=== PATIENT | female | born 1995 | race Caucasian/White ===

== ENCOUNTER 2022-09-18 12:49 | Emergency (ER) | payer BC, SELFPAY ==
[2022-09-18] VITALS (10 sets, daily range): BP systolic 123–146; BP diastolic 82–105; PULSE 55–72; RESP 16–18; TEMP 36.6; O2SAT 96–99; BMI 21.6
[2022-09-18 13:41] LABS: Basophils Absolute Auto 0.08 K/uL (0.00-0.30); Basophils Percent Auto 1.1 % (0.0-3.0); Eosinophils Absolute Auto 0.19 K/uL (0.00-0.50); Eosinophils Percent Auto 2.7 % (0.0-7.0); Hematocrit 39.5 % (33.0-51.0); Hemoglobin* 13.1 gm/dL (12.0-16.0); Immature Granulocytes Abs Auto 0.01 K/uL (0.00-0.30); Immature Granulocytes Pct Auto 0.1 %; Lymphocytes Percent Auto 19.3 % (20-44); Mean Corpuscular HGB Conc 33 gm/dL (32-36); Mean Corpuscular Hemoglobin 30 pg (26-34); Mean Corpuscular Volume 89 fL (80-100); Monocytes Percent Auto 8.1 % (0.0-11.0); Neutrophils Percent Auto 68.7 % (42.0-72.0); Platelet Count* 247 K/uL (140-440); RDW Coefficient of Variation % 13.3 % (11.5-15.5); Red Blood Count 4.43 m/uL (4.00-5.20); White Blood Count* 7.14 K/uL (4.50-11.00)
[2022-09-18 13:42] LABS: Appearance Urine Clear (Clear); Bilirubin Urine Negative (Negative); Blood Urine Trace-lysed (Negative); Color Urine Yellow (Yellow); Glucose Urine Negative (Negative); HCG Qualitative* Negative (Negative); Ketones Urine Negative (Negative); Leukocyte Esterase Urine 1+ (Negative); Nitrite Urine Negative (Negative); Protein Urine Negative (Negative); Urobilinogen Urine 0.2 (0.2-1.0)
[2022-09-18] MEDS: KETOROLAC 30 MG/ML inj IVP (13:45)
[2022-09-18] MEDS: 0.9 % SODIUM CHLORIDE 1000 ml 1,000 ML IV (13:45)
[2022-09-18] MEDS: MORPHINE 4 MG/ML INJ IVP ×2 (13:46→15:37)
[2022-09-18 13:53] LABS: RBC Urine 0-2 (0-2); Squamous Epithelial Cell Urine Few (None-Few); WBC Urine 0-2 (0-5)
[2022-09-18 13:53] LABS: Albumin* 4.7 g/dL (3.3-5.0); Chloride* 108 mmol/L (96-114); Sodium* 139 mmol/L (135-149)
[2022-09-18 13:55] LABS: Creatinine* 0.7 mg/dL (0.5-1.5); Est. Creatinine Clearance* 106.71; Estimated Glomerular Filt Rate 120 ml/min
[2022-09-18 13:56] LABS: Aspartate Amino Transferase* 23 U/L (12-35); Bilirubin Direct* 0.1 mg/dL (0.0-0.5); Bilirubin Total* 0.8 mg/dL (0.1-1.5); Carbon Dioxide* 24 mmol/L (20-32); Total Protein* 7.5 g/dL (6.0-8.3)
[2022-09-18 13:57] LABS: Alanine Aminotransferase* 16 U/L (4-35); Alkaline Phosphatase* 108 U/L (40-150); Blood Urea Nitrogen* 10 mg/dL (5-24); Calcium* 9.2 mg/dL (8.4-10.6); Glucose* 89 mg/dL (60-115)
[2022-09-18 14:00] LABS: Slide Review Reflex No
[2022-09-18 14:02] LABS: C Reactive Protein* < 0.5 mg/dL (0.5-1.0)
--- NOTE | 2022-09-18 14:14 | CRLHL7_ITS ---
For Patients: As a result of the Century Cures Act, medical imaging exams and procedure reports are released immediately into your electronic medical record. You may view this report before your referring provider. If you have questions, please contact your health care provider. INDICATION: Right lower quadrant pain for 1 day. TECHNIQUE: CT abdomen and pelvis without contrast. Coronal and sagittal reformats were generated. COMPARISON: None. FINDINGS: Lower chest: Unremarkable. Liver: Unremarkable. Gallbladder and bile ducts: Unremarkable. No stones or inflammation. No biliary dilation. Spleen: Unremarkable. Pancreas: Unremarkable. Adrenal glands: Unremarkable. No nodules. Kidneys and Ureters: No stones or hydronephrosis. Lymph Nodes and Retroperitoneum: Unremarkable. Vasculature: Unremarkable. GI tract: Unremarkable. Normal in caliber. Normal appendix. Peritoneum/Abdominal Wall: Unremarkable. No free air or free fluid. Pelvic Viscera: Unremarkable. Bladder: Unremarkable. Bones: Unremarkable for age. IMPRESSION: 1. No renal or ureteral calculi, or findings of obstructive uropathy. 2. No other significant CT abnormality within limitations of lack of contrast. Please note that all CT scans at this facility use dose modulation, iterative reconstruction, and/or weight-based dosing when appropriate to reduce radiation dose to as low as reasonably achievable. Dictated by Zacarias Bruner MD @ 09/18/2022 3:08:44 PM (Electronically Signed)
--- NOTE | 2022-09-18 15:22 | CRLHL7_ITS ---
For Patients: As a result of the Century Cures Act, medical imaging exams and procedure reports are released immediately into your electronic medical record. You may view this report before your referring provider. If you have questions, please contact your health care provider. INDICATION: Right lower quadrant/adnexal area pain. TECHNIQUE: Ultrasound pelvis transabdominal and transvaginal for better assessment or to better visualize the endometrium. Real-time sonographic images with spectral and color Doppler imaging of the ovaries were obtained. COMPARISON: CT of the abdomen and pelvis from 09/18/2022. FINDINGS: Uterus: 7.3 x 3.2 x 4.2 cm. Normal echotexture of the myometrium. No masses. Endometrium: Transvaginal imaging was performed to better evaluate the endometrium. Endometrial thickness measures 4 mm. No sign of endometrial mass or fluid. Ovaries: The right ovary measures 2.9 x 1.6 x 1.8 cm and left ovary measures 2.6 x 1.2 x 1.9 cm. No ovarian or adnexal masses. Normal arterial and venous blood flow in the right ovary. Blood flow cannot be confirmed in the left ovary. Cul-de-sac: No significant free fluid. Trace free fluid in the right adnexum is within the physiologic range. IMPRESSION: 1. The territory sales professional could not document blood flow to the left ovary. Left ovarian torsion cannot be excluded on this basis. 2. No other sonographic abnormality in the pelvis. Specifically, the right ovary demonstrates normal blood flow. Dictated by Zacarias Bruner MD @ 09/18/2022 5:16:46 PM (Electronically Signed)
--- NOTE | 2022-09-18 17:14 | ED_ITS ---
HPI - Abdominal Pain General Chief Complaint: Abdominal Pain Stated Complaint: Low R abdominal pain Time Seen by Provider: 09/18/22 12:55 History of Present Illness HPI narrative: 27-year-old young woman presenting to the emergency department with her significant other with complaint of right lower abdominal pain. Has been going on now for about 3 hours. Initially presented to the urgent care and then directed to the ER. Sudden onset. Sharp pain. Sometimes pulsatile but always present. Any movement hurts. Curling up into a ball seemed to help a little bit; she had describes a position. Initially denying urinary tract symptoms partly because had urinated today but if she recalls over the last 2-3 days has experienced some twinges of discomfort sounds like generally at the end of voiding. No unusual vaginal discharge described. No fever. No trauma noted. Would not describe herself as constipated. She notes having been diagnosed 1 point in the past with constipation and at that time she had some left abdominal and flank area tenderness. Is not nauseated but does not want to eat. Menses have been rather irregular but would expect her next period in about 10 days. 2 brothers and father with kidney stones. Later noted that did have some recent thin white vaginal discharge that she would note to be consistent with ovulation. Related Data Home Medications Medication Instructions Recorded Confirmed escitalopram oxalate 10 mg tablet mg 09/18/22 Allergies Allergy/AdvReac Type Severity Reaction Status Date / Time cefaclor [From Ceclor] Allergy Verified 09/18/22 12:59 Review of Systems Status of ROS Reports: 10 or more systems reviewed and unremarkable except as noted in History and below PFSH PFS Social History Smoking Status: Never smoker How often do you have a drink containing alcohol: 2-3 times a week AUDIT-C Alcohol total score: 3 Non-prescribed substance use: denies use Exam Narrative: Exam Narrative: Pleasant. Seated curled up a little bit appearing uncomfortable. Breathing easily. Oropharynx is moist. Cranial nerves 2-12 look to be intact. Lungs are clear. Cardiovascular with regular rate and rhythm. There is no flank pain. Abdomen is soft and significantly tender in the right lower quadrant. Primary area of pain appears to be medial to McBurney's and superior to the adnexal area. No swellings appreciated. No masses appreciated. Extremities are well perfused and without edema. Moving all extremities without difficulty. On initial exam is not appear to be left abdominal or pelvic tenderness. On repeat exam deeper palpation able to reproduce a small amount of discomfort in the left lower quadrant maybe more so the left adnexal area. Const: Vital Signs, click to edit/add: Vital Signs - 24 hr 09/18/22 12:56 09/18/22 14:00 09/18/22 13:50 Temperature 97.8 F Pulse Rate [Right Pulse Oximeter] 72 61 Respiratory Rate 18 16 Blood Pressure [Ri ght Upper Arm] 146/91 H 131/91 H Pulse Oximetry 99 97 97 Oxygen Delivery Me thod Room Air Room Air 09/18/22 14:30 09/18/22 15:00 09/18/22 15:30 Temperature Pulse Rate [Right Pulse Oximeter] 63 63 56 L Respiratory Rate 16 16 16 Blood Pressure [Ri ght Upper Arm] 137/105 H 142/82 H 123/90 H Pulse Oximetry 98 98 98 Oxygen Delivery Me thod 09/18/22 16:00 09/18/22 17:00 09/18/22 17:30 Temperature Pulse Rate [Right Pulse Oximeter] 61 62 55 L Respiratory Rate 16 16 16 Blood Pressure [Ri ght Upper Arm] 135/89 136/85 135/86 Pulse Oximetry 96 96 97 Oxygen Delivery Me thod 09/18/22 18:00 Temperature Pulse Rate [Right Pulse Oximeter] 57 L Respiratory Rate 16 Blood Pressure [Ri ght Upper Arm] 144/96 H Pulse Oximetry 98 Oxygen Delivery Me thod Documenting provider has reviewed patient's vital signs: yes Course Vital Signs Vital signs: Initial Vital Signs Temperature 97.8 F 09/18/22 12:56 Temperature Source Temporal Artery Scan 09/18/22 12:56 Pulse Rate 72 09/18/22 12:56 Respiratory Rate 18 09/18/22 12:56 Blood Pressure 146/91 H 09/18/22 12:56 Blood Pressure Mean 109 09/18/22 12:56 Blood Pressure Position Sitting 09/18/22 12:56 Pulse Oximetry 99 09/18/22 12:56 Oxygen Delivery Method 09/18/22 12:56 Vital Signs Temperature 97.8 F 09/18/22 12:56 Pulse Rate 72 09/18/22 12:56 Respiratory Rate 18 09/18/22 12:56 Blood Pressure 146/91 H 09/18/22 12:56 Pulse Oximetry 99 09/18/22 12:56 Oxygen Delivery Method 09/18/22 12:56 Temperature 97.8 F 09/18/22 12:56 Pulse Rate 57 L 09/18/22 18:00 Respiratory Rate 16 09/18/22 18:00 Blood Pressure 144/96 H 09/18/22 18:00 Pulse Oximetry 98 09/18/22 18:00 Oxygen Delivery Method 09/18/22 14:00 MDM - Abdominal Pain MDM Narrative Medical decision making narrative: Differential includes epiploic appendagitis, diverticulitis less likely, ureteral stone and spasm, urinary tract infection, ovarian issue, ectopic, appendicitis. Location of discomfort more consistent with appendicitis but story is not, location inconsistent with ovarian but possible, pain is more reproducible than I would typically expect with ureteral stone. Does appear to have significant pain. Given IV fluids morphine and ketorolac. With re-evaluation pain was returning and re-dosed with morphine. Pain ultimately was still mildly present again in the right low abdomen but overall improved. Strangely have time in this emergency department today and I think will let labs guide further imaging. White count was normal as was CRP. I would think more of an ovarian issue although pain again not in location I might expect. Urinary symptoms that she was describing at end of urination and urinalysis without evidence of infection however trace lysed blood and with 1+ leukocyte esterase decided to proceed with CT imaging evaluating for possible ureteral stone or recently passed. CT scan by my read did show some calcifications in the pelvis consistent with phleboliths, and what I think is a higher right ovary. -- radiology over-read noted no abnormalities. Visualized normal appendix. Discussing next steps as still without clear diagnosis, decided to proceed with pelvic ultrasound. I have discussed with the collection technician who noted some free fluid around the right ovary and that was not able to document blood flow to the left ovary. Abdominal gas did make exam more challenging. Exam did not appear to be particularly uncomfortable. Radiology over-read concurs with the collection technician report including physiologic fluid in the right adnexal area. I did discuss this case and findings with tipple supervisor on-call. Symptoms and imaging reviewed inconsistent otherwise with torsion or anoxic left ovary. Lab Data Attestation: I reviewed the patient's lab results. Labs: Lab Results 09/18/22 09/18/22 09/18/22 Range/Units 13:10 13:10 13:30 WBC 7.14 (4.50-11.00) K/uL RBC 4.43 (4.00-5.20) m/uL Hgb 13.1 (12.0-16.0) gm/dL Hct 39.5 (33.0-51.0) % MCV 89 (80-100) fL MCH 30 (26-34) pg MCHC 33 (32-36) gm/dL RDW Coeff of Juice 13.3 (11.5-15.5) % Plt Count 247 (140-440) K/uL Neut % (Auto) 68.7 (42.0-72.0) % Lymph % (Auto) 19.3 L (20-44) % [place] % (Auto) 8.1 (0.0-11.0) % Eos % (Auto) 2.7 (0.0-7.0) % Baso % (Auto) 1.1 (0.0-3.0) % Neut # (Auto) 4.90 (1.7-7.0) K/uL Lymph # (Auto) 1.40 (0.90-2.90) K/uL [place] # (Auto) 0.60 (0.00-0.90) K/UL Eos # (Auto) 0.19 (0.00-0.50) K/uL Baso # (Auto) 0.08 (0.00-0.30) K/uL Sodium (135-149) mmol/L Potassium (3.6-5.1) mmol/L Chloride (96-114) mmol/L Carbon Dioxide (20-32) mmol/L BUN (5-24) mg/dL Creatinine (0.5-1.5) mg/dL Estimated Creat Clear Estimated GFR ml/min Glucose (60-115) mg/dL Calcium (8.4-10.6) mg/dL Total Bilirubin (0.1-1.5) mg/dL Direct Bilirubin (0.0-0.5) mg/dL AST (12-35) U/L ALT (4-35) U/L Alkaline Phosphatase (40-150) U/L C-Reactive Protein (0.5-1.0) mg/dL Total Protein (6.0-8.3) g/dL Albumin (3.3-5.0) g/dL HCG, Qual Negative (Negative) Urine Color Yellow (Yellow) Urine Appearance Clear (Clear) Urine pH 6.0 (5.0-8.5) Ur Specific [place] 1.020 (1.000-1.030) Urine Protein Negative (Negative) Urine Glucose (UA) Negative (Negative) Urine Ketones Negative (Negative) Urine Blood Trace-lysed A (Negative) Urine Nitrite Negative (Negative) Urine Bilirubin Negative (Negative) Urine Urobilinogen 0.2 (0.2-1.0) Ur Leukocyte Esterase 1+ A (Negative) Urine RBC 0-2 (0-2) Urine WBC 0-2 (0-5) Ur Squamous Epith Cells Few (None-Few) Urine Bacteria None (None) 09/18/ Range/Units 13:30 WBC (4.50-11.00) K/uL RBC (4.00-5.20) m/uL Hgb (12.0-16.0) gm/dL Hct (33.0-51.0) % MCV (80-100) fL MCH (26-34) pg MCHC (32-36) gm/dL RDW Coeff of Juice (11.5-15.5) % Plt Count (140-440) K/uL Neut % (Auto) (42.0-72.0) % Lymph % (Auto) (20-44) % [place] % (Auto) (0.0-11.0) % Eos % (Auto) (0.0-7.0) % Baso % (Auto) (0.0-3.0) % Neut # (Auto) (1.7-7.0) K/uL Lymph # (Auto) (0.90-2.90) K/uL [place] # (Auto) (0.00-0.90) K/UL Eos # (Auto) (0.00-0.50) K/uL Baso # (Auto) (0.00-0.30) K/uL Sodium 139 (135-149) mmol/L Potassium 4.0 (3.6-5.1) mmol/L Chloride 108 (96-114) mmol/L Carbon Dioxide 24 (20-32) mmol/L BUN 10 (5-24) mg/dL Creatinine 0.7 (0.5-1.5) mg/dL Estimated Creat Clear 106.71 Estimated GFR 120 ml/min Glucose 89 (60-115) mg/dL Calcium 9.2 (8.4-10.6) mg/dL Total Bilirubin 0.8 (0.1-1.5) mg/dL Direct Bilirubin 0.1 (0.0-0.5) mg/dL AST 23 (12-35) U/L ALT 16 (4-35) U/L Alkaline Phosphatase 108 (40-150) U/L C-Reactive Protein < 0.5 L (0.5-1.0) mg/dL Total Protein 7.5 (6.0-8.3) g/dL Albumin 4.7 (3.3-5.0) g/dL HCG, Qual (Negative) Urine Color (Yellow) Urine Appearance (Clear) Urine pH (5.0-8.5) Ur Specific [place] (1.000-1.030) Urine Protein (Negative) Urine Glucose (UA) (Negative) Urine Ketones (Negative) Urine Blood (Negative) Urine Nitrite (Negative) Urine Bilirubin (Negative) Urine Urobilinogen (0.2-1.0) Ur Leukocyte Esterase (Negative) Urine RBC (0-2) Urine WBC (0-5) Ur Squamous Epith Cells (None-Few) Urine Bacteria (None) Discharge Plan Discharge Clinical Impression: Pelvic pain, Right pelvic adnexal fluid collection Patient Disposition: Home w/ Parent or Adult Condition: Improved Additional Instructions: Can take ibuprofen or if necessary your [place] for pain. As I discussed I am still bothered by the apparent absence of demonstrated blood flow to the left ovary however upon review with our dry chain puller and CT imaging as well, does not otherwise appear to be an abnormality with this ovary. Please watch carefully. If pain really seems to be escalating especially in this left lower abdomen, please return to the emergency department. Return also for repeated vomiting, fever. The pain in the lower right abdomen may be due to the small amount of fluid noted here which isn't really out of the realm of ordinary, is physiologic. If needed, [place] from [facility]. Prescriptions: No Action escitalopram oxalate 10 mg tablet Follow Up/Referrals: Provider,Not a Local [Primary Care Provider] - Stand Alone Forms: [employer] Info Instructions
== END 2022-09-18 18:12 | disposition home or self-care (01) ==
PROVIDERS: Emergency Provider Family Medicine
DX: R10.2 Pelvic and perineal pain (principal); N83.9 Noninflammatory disorder of ovary, fallopian tube and broad ligament, unspecified
CPT/HCPCS: 36415; 74176; 76830; 76856; 80048; 80076; 81001; 84703; 85025; 86140; 93976; 94761; 96361; 96374; 96375; 99284; 99285; J1885; J2270; J7030